=== PATIENT | female | born 1960 | race Caucasian/White ===

== ENCOUNTER 2020-12-21 15:20 | Outpatient (CLI) | payer BC, SELFPAY ==
--- NOTE | 2020-12-21 14:30 | DI.RAD_ITS ---
Exam(s) XR KNEE LT 4V AP,LAT,MATTIE,PAT EXAM: XR KNEE LT 4V AP,LAT,MATTIE,PAT CLINICAL HISTORY: LEFT KNEE PAIN. TECHNIQUE: 2D digital imaging was performed. COMPARISON: No previous for comparison. FINDINGS: There are marked degenerative changes in the left knee involving all 3 joint compartments. The findi ngs are most marked in the patellofemoral joint. No acute fracture or dislocation. No joint effusio n. The soft tissues are unremarkable. IMPRESSION: Marked osteoarthritis. DATA REPOSITORY: RADIATION DOSE DELIVERED:
--- NOTE | 2020-12-21 14:30 | DI.RAD_ITS ---
Exam(s) XR KNEE RT 3V AP,LAT,MATTIE EXAM: XR KNEE RT 3V AP,LAT,MATTIE CLINICAL HISTORY: RIGHT KNEE PAIN. TECHNIQUE: 2D digital imaging was performed. COMPARISON: CR RIGHT KNEE COMPLETE from 08/24/2007 FINDINGS: Since the prior examination the patient has undergone a right total knee replacement. The orthopedic hardware appears in good position no suspicious lucencies are seen in or about the orthopedic hardwa re. No acute fracture or dislocation. No joint effusion. The soft tissues are unremarkable. IMPRESSION: Right TKR. DATA REPOSITORY: RADIATION DOSE DELIVERED:
== END 2020-12-21 15:21 | disposition home or self-care (01) ==
LOC: DIORS 15:21
PROVIDERS: PCP Nurse Practitioner Family; Referring Provider Nurse Practitioner Family; Visit Provider Student in an Organized Health Care Education/Training Program
DX: M25.561 Pain in right knee (principal); Z96.651 Presence of right artificial knee joint; M25.562 Pain in left knee; M17.12 Unilateral primary osteoarthritis, left knee
CPT/HCPCS: 73562; 73564

== ENCOUNTER → 2024-01-08 19:01 | Outpatient (CLI) | payer BC, SELFPAY ==
--- NOTE | 2024-01-08 11:10 | DI.RAD_ITS ---
Exam(s) XR CHEST 2V PA LATERAL EXAM: XR CHEST 2V PA LATERAL CLINICAL HISTORY: evaluate pathology, COUGH, R05.9 TECHNIQUE: 2D digital imaging was performed of the chest. Two images were obtained. PA and lateral views were obtained. COMPARISON: No exams were available for comparison FINDINGS: MEDIASTINUM: Normal. HEART: Normal. PULMONARY VASCULATURE: Normal. LUNGS: Clear. PLEURAL SPACE: No pleural effusion or pneumothorax. BONE:Within normal limits for the patient's age. OTHER FINDINGS:Normal. IMPRESSION: No acute pulmonary findings. DATA REPOSITORY: RADIATION DOSE DELIVERED:
== END ==
PROVIDERS: PCP Family Medicine; Visit Provider Nurse Practitioner Family
DX: R05.9 Cough, unspecified (principal)
CPT/HCPCS: 71046

== ENCOUNTER 2024-09-18 09:59 | Outpatient (REF) | payer BC, SELFPAY | END 2024-09-18 10:00 | disposition home or self-care (01) | LOC: LBN 09:59 | PROVIDERS: PCP Family Medicine; Visit Provider Nurse Practitioner Family | DX: J02.9 Acute pharyngitis, unspecified (principal); R68.89 Other general symptoms and signs; J06.9 Acute upper respiratory infection, unspecified | CPT/HCPCS: 87070 ==